=== PATIENT | male | born 2000 | race Caucasian/White ===

== ENCOUNTER 2020-05-26 14:57 | Outpatient (CLI) | payer OTHER, SELFPAY ==
--- NOTE | ~2020-05-26 | XR_ITS ---
XR foot LT min 3V DATE: 05/26/2020 15:31 INDICATION: Hockey buttock struck lateral left foot. Fifth digit pain. TECHNIQUE: 4 views COMPARISON: 04/03/2016 left foot FINDINGS: There is a transverse fracture through the midportion of the fused middle and distal phalan x, with minimal displacement. No other fracture or dislocation is detected. IMPRESSION: Transverse fracture through the midportion of the fused middle and distal phalanx of the fifth toe Reviewed, dictated and finalized at location B. [facility]
== END 2020-05-26 14:58 | disposition home or self-care (01) ==
LOC: ANHIMG 15:08
PROVIDERS: PCP Pediatrics; Visit Provider Pediatrics
DX: M79.672 Pain in left foot (principal); S92.532A Displaced fracture of distal phalanx of left lesser toe(s), initial encounter for closed fracture
CPT/HCPCS: 73630

== ENCOUNTER → 2020-08-18 09:44 | Outpatient (CLI) | payer OTHER, SELFPAY ==
[2020-08-19 19:22] LABS: SARS-CoV-2 RNA PCR Negative
== END ==
PROVIDERS: PCP Pediatrics; Visit Provider Pediatrics
DX: Z20.822 Contact with and (suspected) exposure to COVID-19 (principal)
CPT/HCPCS: C9803; U0003; U0005

== ENCOUNTER 2022-02-14 12:07 | Emergency (ER) | payer OTHER, SELFPAY ==
[2022-02-14 12:10] VITALS: BP 140/59; PULSE 75; RESP 16; TEMP 37.3; O2SAT 99
--- NOTE | 2022-02-14 12:23 | ED.URI ---
HPI - URI/Sore Throat General Stated Complaint: EARACHE Time Seen by Provider: 02/14/22 12:13 Source: patient Mode of arrival: ambulatory Limitations: no limitations History of Present Illness HPI Narrative: 22-year-old male presented for complaint of left ear pain, onset today. He endorses he has had sinus pressure, nasal congestion, headache, fever and dizziness for about 3 days. He has taken Sudafed for symptoms. He denies tinnitus, drainage, nausea, vomiting, cough, shortness of breath or wheezing. Endorses about 2 weeks ago while playing hockey, he was struck by an elbow to the left TMJ area and endorses mild pain and morning joint stiffness. Related Data Allergies Allergy/AdvReac Type Severity Reaction Status Date / Time No Known Allergies Allergy Mild Unverified 04/20/08 19:50 Review of Systems Review of Systems: CONSTITUTIONAL: reports malaise, fever. EYES: Denies visual changes, redness, or discharge. ENT: Reports ear pain, rhinorrhea, congestion, sinus pain, and sore throat. CARDIOVASCULAR: Denies chest pain, palpitations, or edema. RESPIRATORY: Denies dyspnea. GASTROINTESTINAL: Denies abdominal pain, vomiting, diarrhea SKIN: Denies rash or itching. MUSCULOSKELETAL: Denies myalgia. All systems reviewed & are unremarkable except as noted in HPI and below PMFSH Comments At time of signature, agree with nursing past medical, surgical, social and family history. There is no relevant family history pertinent to the presenting complaint Exam Narrative: GENERAL: ill-appearing, non-toxic HEAD: Normocephalic EYES: PERRLA, conjunctivae clear ENT: Nares clear. Mucous membranes moist. Right TM pearly barragan with normal light reflex; Left TM erythematous and bulging, with erythematous canal; no drainage or tragal tenderness. Oropharynx not erythematous without lesions. no drooling, no hoarseness, no trismus, uvula midline. Left TMJ mild ttp, no swelling or bruising. CHEST: Clear to auscultation, breath sounds equal. HEART: Regular rate and rhythm. SKIN: Warm, dry, no rash. NEURO: Alert and oriented x3. PSYCH: Normal mood and affect Course Course Emergency Course: Patient is aware of diagnosis, understands and agrees to treatment plan. Anticipatory guidance given. Patient agrees to follow-up as directed and is aware of reasons to seek care at the emergency department. Portions of this record may have been created with voice recognition software Level of Care: Express Care Visit Vital Signs Vital signs: Reviewed MDM - URI/Sore Throat MDM Narrative Medical decision making narrative: Advised supportive measures for AOM and signs/symptoms to go to the ER. Recommend f/u for TMJ pain. Pt is appropriate for outpt treatment and f/u. Differential Diagnosis Differential diagnosis: Likely upper respiratory infection, otitis media and sinusitis Discharge Plan Discharge Clinical Impression: Arthralgia of left temporomandibular joint Otitis media Qualifiers: Otitis media type: suppurative Chronicity: acute Laterality: left Recurrence: non-recurrent Spontaneous tympanic membrane rupture: without spontaneous rupture Qualified Code(s): H66.002 - Acute suppurative otitis media without spontaneous rupture of ear drum, left ear Patient Disposition: Home, Self-Care Condition: Stable Additional Instructions: Take antibiotics as directed. Recommend antihistamine such as Benadryl, Zyrtec or Raquel for sinus congestion Flonase nasal spray, 1 spray in each nostril once daily until symptoms improve Rest, increase fluids Tylenol 1000mg and ibuprofen 800 mg every 8 hours as needed to reduce fever, pain Please schedule a follow-up visit with your personal physician for further evaluation and treatment within 3-5days. Consider ENT/oral maxillofacial specialist for TMJ pain If your symptoms persist, change or worsen significantly, go to the emergency department for further evaluation. Prescriptions: New ibuprofen 800
== END 2022-02-14 12:34 | disposition home or self-care (01) ==
PROVIDERS: Emergency Provider Nurse Practitioner Family; PCP Family Medicine
DX: M26.622 Arthralgia of left temporomandibular joint (principal); H66.002 Acute suppurative otitis media without spontaneous rupture of ear drum, left ear
CPT/HCPCS: 99213; G0463

== ENCOUNTER 2022-02-28 18:33 | Emergency (ER) | payer OTHER, SELFPAY ==
[2022-02-28 18:39] VITALS: BP 130/76; PULSE 60; RESP 16; TEMP 36.9; O2SAT 99
--- NOTE | 2022-02-28 18:54 | ED.GENADULT ---
HPI - General Adult General Chief complaint: Eye Problems Stated complaint: EYE REDNESS History of Present Illness HPI narrative: 22 y/o male. PMHx None reported. Presents to [facility] today with acute complaints of bilateral eye lacrimation, pruritus, redness, and lashline crusting for the past 24-48 hours. Client describes recently getting over a sinus infection, and now his eyes have been increasingly more red and irritated. -No fever. -No eye pain or trauma. -No visual changes or loss. -Has been wearing corrective lenses (instead of contacts) and using warm compress at home with minimal reliefs. He reports to still have some residual sinus congestion, and is using continued OP antihistamine w/some reliefs. -No cough, chest congestion, wheezing, dyspnea. No additional acute c/o upon PE. Related Data Allergies Allergy/AdvReac Type Severity Reaction Status Date / Time No Known Allergies Allergy Mild Unverified 02/28/22 18:44 Review of Systems Review of Systems: CONSTITUTIONAL: Denies fever, chills, sweats. EYES: Denies visual changes or loss. + redness & discharge. ENT: + rhinorrhea, congestion. No sore throat, otalgia. CARDIOVASCULAR: Denies chest pain, palpitations, edema. RESPIRATORY: Denies dyspnea, wheezing, cough GASTROINTESTINAL: Denies abdominal pain, nausea, vomiting, diarrhea. SKIN: Denies rash or itching. Remainder of ROS has been reviewed: Negative. Exam Narrative: GENERAL: This is a well-nourished, well-developed adult, in no apparent distress. HEAD: normocephalic, atraumatic. EYES: PERRL. EOM intact. Bilateral sclera erythematous. Residual sticky yellow residue overlying bilateral lower lid margins and lashline. EARS: External ears normal, auditory canals clear and without drainage. TMs intact. NOSE: External nose normal. Positive Rhinorrhea, no obstruction, nares patent. THROAT: Mucous membranes moist, posterior pharynx clear. No exudates. NECK: Neck supple, non-tender without lymphadenopathy, masses or thyromegaly. CARDIOVASCULAR: Regular rate and rhythm. RESPIRATORY: Clear to auscultation. GASTROINTESTINAL: Abdomen soft. SKIN: warm, intact. NEURO: Alert, active, and age appropriate. Course Course Level of Care: Express Care Visit Vital Signs Vital signs: Vital Signs Temperature 36.9 C 10/12/22 18:39 Pulse Rate 60 02/28/22 18:39 Respiratory Rate 16 02/28/22 18:39 Blood Pressure 130/76 02/28/22 18:39 Pulse Oximetry 99 02/28/22 18:39 Temperature 36.9 C 02/28/22 18:39 Pulse Rate 60 02/28/22 18:39 Respiratory Rate 16 02/28/22 18:39 Blood Pressure 130/76 02/28/22 18:39 Pulse Oximetry 99 02/28/22 18:39 Medical Decision Making MDM Narrative Medical decision making narrative: -Resume OP daily antihistamine and warm compress regimen. -Start Neomycin/Polymyxin/Dex Opth Gtts regimen as directed. -Continue to wear prescriptive lenses, avid contacts until full therapy has been exhausted, and healing has been achieved. -Hand hygiene & additional contact precautions have been reviewed. -PCP F/U 1 WK. -ER W/Emergent status changes. Pt voices no additional questions or concerns and agrees. Differential Diagnosis Differential Diagnosis: Differential Diagnosis: Consideration of the following conditions may be warranted for the presenting problem, they are not final diagnoses: Bacterial Conjunctivitis, Allergic Conjunctivitis, Blepharitis, Hordeolum, Orbital Cellulitis, upper respiratory infection, sinusitis, viral infection, and/or other. Vital Signs Vital Signs: Vital Signs Temperature 36.9 C 02/28/22 18:39 Pulse Rate 60 02/28/22 18:39 Respiratory Rate 16 02/28/22 18:39 Blood Pressure 130/76 02/28/22 18:39 Pulse Oximetry 99 02/28/22 18:39 Temperature 36.9 C 02/28/22 18:39 Pulse Rate 60 02/28/22 18:39 Respiratory Rate 16 02/28/22 18:39 Blood Pressure 130/76 02/28/22 18:39 Pulse Oximetry
== END 2022-02-28 18:56 | disposition home or self-care (01) ==
PROVIDERS: Emergency Provider Nurse Practitioner Adult Health; PCP Family Medicine
DX: H10.9 Unspecified conjunctivitis (principal); R09.81 Nasal congestion
CPT/HCPCS: 99213; G0463